=== PATIENT | female | born 1995 | race Caucasian/White ===

== ENCOUNTER 2024-07-10 10:46 | Emergency (ER) | payer BC, SELFPAY ==
[~2024-07-10 10:46] MED LIST: Atropine Sulfate 1 mg/10 ml Syringe ONE; Calcium Chloride 1 GM/10 ML Abboject SYRINGE ONE; Dextrose 50% Abboject 50 ML SYRINGE ONE; EPINEPHrine 1 MG/10 ML Abboject SYRINGE ONE; EPINEPHrine 1 MG/ML AMP ONE; Lidocaine 2 gm/D5W 500ML PREMIX BAG ONE; Lidocaine 2% PF 100 mg/5 ml Syringe ONE; Naloxone HCl 0.4 mg/ml Vial ONE; Sodium Bicarb 50 MEQ/50 ML Abboject 8.4% SYRINGE ONE
[2024-07-10] MEDS ORDERED: NOREPINEPHRINE 8 MG/250 ML-D5W 250 ML ONE (10:50)
[2024-07-10] MEDS ORDERED: Sodium Bicarb 50 mEq/50 ML VIAL ONE (11:05)
[2024-07-10 11:49] LABS: Actual Bicarbonate (HCO3v) 8.5 mEq/L (22-28); Analyzer IN Cardio CS ER; Base Excess -27.4 mEq/L (-2 - +2); Calcium, Ionized (venous) 1.19 mmol/L (1.16-1.32); Chloride (VBG) 100 mmol/L (98-106); Hematocrit-VBG 46 % (36.0-47.0); Hemoglobin (Hb) 15.8 g/dL (11.7-15.5); Potassium (VBG) 6.28 mmol/L (3.70-5.30); Puncture Site Other Site; RapidComm Collect By cbn; Sodium 135 mmol/L (133-146); pH (venous) 6.777 (7.32-7.43)
[2024-07-10 11:52] LABS: Actual Bicarbonate (HCO3v) 6.6 mEq/L (22-28); Analyzer IN Cardio CS ER; Base Excess -28.1 mEq/L (-2 - +2); Calcium, Ionized (venous) 1.08 mmol/L (1.16-1.32); Chloride (VBG) 109 mmol/L (98-106); Hematocrit-VBG 31 % (36.0-47.0); Hemoglobin (Hb) 10.7 g/dL (11.7-15.5); Potassium (VBG) 3.15 mmol/L (3.70-5.30); Puncture Site Other Site; RapidComm Collect By CBN; Sodium 135 mmol/L (133-146); pH (venous) 6.754 (7.32-7.43)
[2024-07-10 12:00] LABS: Hematocrit 28.7 % (34.9-44.5); Hemoglobin 9.2 g/dL (12.0-15.5); Mean Corpuscular HGB CONC 32.1 g/dL (32.0-36.0); Mean Corpuscular Hemoglobin 29.4 pg (27.0-33.0); Mean Corpuscular Volume 91.7 fL (81.6-98.3); Platelet Count 18 10x3/uL (150-450); RBC Distribution Width 12.5 % (11.5-14.5); Red Blood Cell (RBC) Count 3.13 10x6/uL (3.90-5.03); White Blood Cell (WBC) Count 7.2 10x3/uL (3.5-10.5)
[2024-07-10 12:08] LABS: MDiff Complete? YES
[2024-07-10 12:09] LABS: Carbon Dioxide Less than 16 mmol/L (22-29)
[2024-07-10 12:16] LABS: ALT (SGPT) 990 U/L (8-55); AST (SGOT) 986 U/L (5-34); Acetaminophen Less than 10 mcg/mL (Less than 10); Albumin 1.5 g/dL (3.5-5.0); Alcohol Less than 10.0 mg/dL (Less than 10); Alkaline Phosphatase 58 U/L (40-110); BUN (Urea Nitrogen) 24 mg/dL (7.0-18.7); Bilirubin, Total 0.5 mg/dL (0.2-1.2); CK (CPK) 166 U/L (29-168); Calc. Creatinine Clearance 0 mL/min (70-130); Chloride 117 mmol/L (98-107); Critical Call Chemistry NUR.KR7 @1216; Estimated GFR 16; Globulin 1.6 g/dL (2.4-3.5); Glucose 160 mg/dL (70-105); Lipase 39 U/L (8-78); Potassium 3.4 mmol/L (3.5-5.1); Protein, Total 3.1 g/dL (6.0-8.3); Salicylate Less than 8.0 mg/dL (Less than 8.0); Sodium 139 mmol/L (136-145)
[2024-07-10 12:17] LABS: Critical Call Chem Troponin I NUR.KR7 @1217; Troponin I 0.732 ng/mL (< 0.028)
[2024-07-10 15:49] LABS: Band 5 % (5-11); Eosinophils 3 % (0-10); Lymphocytes 35 % (21-51); Metamyelocyte 2 % (0-0); Monocytes 2 % (0-10); Myelocyte 9 % (0-0); Nucleated RBC (Manual Ct) 1 % (0); Promyelocytes 1 % (0-0); Reactive Lymphocytes 1 % (0-10)
[2024-07-10 15:50] LABS: Neutrophil 41 % (42-75)
[2024-07-10 15:51] LABS: Burr Cells SLIGHT = 2-5 cells (100X) (0-1/hpf); Vacuoles MODERATE
[2024-07-10 15:52] LABS: Platelet Adequacy Comment Significant decrease
[2024-07-10 15:55] LABS: Reflex for Review?? YES
== END 2024-07-10 12:17 | disposition short-term general hospital (02) ==
LOC: EDBD 10:46 → CSHERS 10:46
DX: I46.9 Cardiac arrest, cause unspecified (principal)
CPT/HCPCS: 36415; 36416; 71045; 80053; 80307; 82550; 82805; 83690; 84484; 84702; 85025; 85060; 85610; 86850; 86900; 86901; 93005; 93010; J0171; J0461; J2002; J2003; J2310; J7999